=== PATIENT | female | born 1970 | race Caucasian/White ===

== ENCOUNTER 2016-10-19 23:20 | Emergency (ER) | payer MEDICARE ==
[~2016-10-19] VITALS: Ht 162.6 cm; Wt 94.3 kg
[~2016-10-19 23:20] MED LIST: ADAL40PE SQ; AMIT10TA6 PO; AMLO5TAB2 PO; ASPI-483 PO; ATOR40TA64 PO; CARV3.123 PO; CHLO25TA PO; CYCL-375 PO; FERR325C PO; GABA-338 PO; HYDR-4246 PO; ISOS30TA6 PO; LEVO100T12 PO; MECL-103 PO; METH25VI11 SQ; NITR0.4T39 SL; OMEP20CA10 PO; ONDA-55 PO; TOPI25TA64 PO
[2016-10-19 23:23] VITALS: Ht 162.6 cm; Wt 94.3 kg
--- OUTSIDE RECORDS SUMMARY | 2016-10-19 23:24 | XMS REPORT ---
Author Author GENERATED, SYSTEM Organization Unknown Address Unknown Phone Unavailable Care Team Providers Care Sliver Lap Machine Tender Name Role Phone FRIEND, LANA BLISSAE [phone] Reason For Visit Chief Complaint R83.8 Social History Functional Status Vital Signs Results Problems Encounter Diagnosis No relevant problems exist. Encounters Encounter Diagnosis No relevant problems exist. Plan of Care Procedures No relevant procedures performed. Immunizations No immunizations administered or ordered. Hospital Course Hospital Discharge Instructions Allergies, Adverse Reactions, Alerts * Latex Allergy has not been assessed. * IV Contrast Allergy has not been assessed. Medication Medication reconciliation has not been performed.
--- OUTSIDE RECORDS SUMMARY | 2016-10-19 23:24 | XMS REPORT ---
Author Author GENERATED, SYSTEM Organization Unknown Address Unknown Phone Unavailable Care Team Providers Care Acrobatic Dancer Name Role Phone FRIEND, LAINA BLISS [phone] Reason For Visit Chief Complaint MIGRAINE Social History Functional Status Vital Signs Results Chemistry from 03/12/2016 1:36 PMSODIUM 142 MMOL/L (136-145 MMOL/L) POTASSIUM 3.7 MMOL/L (3.5-5.1 MMOL/L) CHLORIDE 107 MMOL/L (98-107 MMOL/L) TCO2 25.4 MMOL/L (21.0-32.0 MMOL/L) *ANION GAP 9.6 MMOL/L (8.0-16.0 MMOL/L) BUN 9 MG/DL (7-18 MG/DL) CREATININE 0.82 MG/DL (0.55-1.02 MG/DL) *BUN/CREATININE RATIO 11.0 (9.1-17.0 ) GLUCOSE 87 MG/DL (65-99 MG/DL) *GFR EST NON AFR MICRONESIAN 87 ML/MIN *GFR EST AFR AMER >90 ML/MIN CALCIUM 8.6 MG/DL (8.5-10.1 MG/DL) BILIRUBIN TOTAL 0.40 MG/DL (0.20-1.00 MG/DL) TOTAL PROTEIN 7.0 GM/DL (6.4-8.2 GM/DL) ALBUMIN 3.6 GM/DL (3.4-5.0 GM/DL) *GLOBULIN 3.4 GM/DL (2.3-3.5 GM/DL) *A/G RATIO 1.1 MG/DL L (1.5-2.2 MG/DL) ALK PHOS 80 U/L (46-116 U/L) ALT (SGPT) 32 U/L (16-63 U/L) AST (SGOT) 20 U/L (15-37 U/L) MAGNESIUM 2.2 MG/DL (1.8-2.4 MG/DL) LIPASE 176 U/L (73-393 U/L) TROPONIN-I <0.017 NG/ML (0.000-0.056 NG/ML) Hematology from 03/12/2016 1:36 PMWBC 6.3 X10e3/UL (3.6-11.2 X10e3/UL) RBC 4.46 X10e6/UL (3.63-4.92 X10e6/UL) HEMOGLOBIN 13.4 G/DL (11.0-14.3 G/DL) HEMATOCRIT 39.6 % (31.2-41.9 %) *MCV 88.9 FL (79.0-98.0 FL) *MCH 30.0 PG (27.0-33.0 PG) *MCHC 33.8 G/DL (32.0-36.0 G/DL) *RDW 14.4 % (12.3-17.0 %) *RDWSD 45.1 (37.1-47.8 ) PLATELET 236 X10e3/UL (159-386 X10e3/UL) *MPV 7.3 FL L (7.4-10.4 FL) AUTOMATED DIFF PERFORMED SEGS 54.4 % *LYMPHOCYTES 30.3 % *MONOCYTES 9.4 % *EOSINOPHILS 5.0 % *BASOPHILS 0.9 % *ABSOLUTE NEUTROPHILS 3.40 X10e3/UL (1.80-7.80 X10e3/UL) *ABSOLUTE LYMPHOCYTES 1.90 X10e3/UL (1.00-3.00 X10e3/UL) *ABSOLUTE MONOCYTES 0.60 X10e3/UL (0.30-1.00 X10e3/UL) *ABSOLUTE EOSINOPHILS 0.30 X10e3/UL (0.00-0.50 X10e3/UL) *ABSOLUTE BASOPHILS 0.10 X10e3/UL (0.00-0.20 X10e3/UL) Urinalysis from 03/12/2016 1:00 PM* Status: Final Result URINALYSIS Specimen Number: [id number] Sample Collection Date/Time: 03/12/2016 1:00 PM Specimen Source: *URINE COLOR YELLOW (STRAW/YELL/DK YELL ) *URINE APPEARANCE CLEAR (CLEAR ) URINE PH 6.5 (5.0-8.0 ) URINE SPECIFIC GRAVITY 1.010 (<=1.005->=1.030 ) *URINE GLUCOSE NEGATIVE MG/DL (NEGATIVE MG/DL) *URINE BILIRUBIN NEGATIVE (NEGATIVE ) *URINE KETONES NEGATIVE MG/DL (NEGATIVE MG/DL) *URINE BLOOD NEGATIVE (NEGATIVE ) *URINE PROTEIN NEGATIVE MG/DL (NEGATIVE MG/DL) *URINE UROBILINOGEN 0.2 EU/DL (0.2-1.0 EU/DL) *URINE NITRITES NEGATIVE (NEGATIVE ) *URINE LEUKOCYTES SMALL A (NEGATIVE ) UR NEGATIVE (NEGATIVE ) *MICROSCOPIC EXAM PERFORMED PERFORMED *WBC URINE 5-10 /HPF A (0-5 /HPF) *SQUAMOUS EP. CELLS FEW /LPF (NEG-FEW /LPF) Microbiology from 03/12/2016 5:10 PM* CULTURE CSF (Preliminary Result) Specimen Number: [id number] Sample Collection Date/Time: 03/12/2016 5:10 PM Specimen Source: CSF (Spinal Fluid) *GRAM STAIN: Gram Stain: No organisms seen 03/12/2016 18:53 No WBC's Result reviewed by dayshift microbiologist. CULTURE CSF: No growth * *GRAM STAIN Specimen Number: [id number] Sample Collection Date/Time: 03/12/2016 5:10 PM Specimen Source: CSF (Spinal Fluid) CULTURE CSF: No growth *GRAM STAIN: Gram Stain: No organisms seen 03/12/2016 18:53 No WBC's Result reviewed by dayscoft microbiologist. Body Fluids from 03/12/2016 5:10 PM*CSF VOLUME 7.0 ML *CSF COLOR COLORLESS (COLORLESS ) *CSF APPEARANCE CLEAR (CLEAR ) *CSF TOTAL NUCLEATED CELLS 0 X10e6/L (0-5 X10e6/L) *CSF RBC 0 X10e6/L (0-1 X10e6/L) CSF GLUCOSE (LAB) 56 MG/DL (40-70 MG/DL) CSF PROTEIN 61 MG/DL H (15-45 MG/DL) *CSF COMMENT See Below DX Radiology from 03/12/2016 2:00 PMCHEST 1 VIEW History: weakness Priors: None. Findings: The heart size and pulmonary vasculature within normal limits. No consolidating infiltrates are identified. No significant pleural effusion or pneumothorax is seen. Impression: No acute abnormality. Electronically signed by: Carmen Montiel MD Dictated: 03/12/2016 14:24 CT Scan from 03/12/2016 3:15 PMCT CEREBRAL W/O CONTRAST History: headache . Onset was this morning, Patient arrives via wheelchair with reports of weakness, nausea and migraine headache. Priors: CT head dated 02/11/2016 Findings: Ventricles and Extra axial spaces: Normal in size and morphology for the patient's age. Hemorrhage: None. Cerebral parenchyma: Normal. Mass effect/midline shift: None. Brainstem/Cerebellum: Normal. Calvarium: Normal. Visualized Paranasal sinuses/Mastoids: Clear. Impression: Unremarkable CT scan of the head. Electronically signed by: Carmen Montiel MD Dictated: 03/12/2016 15:21 Problems Encounter Diagnosis No relevant problems exist. [...]
--- OUTSIDE RECORDS SUMMARY | 2016-10-19 23:24 | XMS REPORT | Continuity of Care Document ---
Author Author [facility] Organization [facility] Address Unknown Phone Unavailable Care Team Providers Care Stock Checker Name Role Phone Mike Matos Primary Care Physician [phone] Source Comments Some departments are not documenting in the electronic medical record. If you do not see the information that you expected, contact Release of Information in the Health Information Management department at [phone] for further assistance in locating additional records.[facility] Active Allergies and Adverse Reactions Allergen Noted Date Severity Reactions Comments Copaxone 01/12/2012 HIVES Latex 01/12/2012 Medium RASH And possible blisters Morphine 03/06/2012 RASH Sulfa (Sulfonamide 09/04/2012 HIVES Antibiotics) Current Medications Prescription Sig. Disp. Refills Start End Date Status Date Magnesium 500 mg Tab Take by mouth. Active vitamins, multiple tablet Take 1 Tab by mouth Active daily. vitamins, B complex Tab Take 1 Tab by mouth Active daily. baclofen (LIORESAL) 10 mg Take 20 mg by mouth at Active tablet bedtime daily. Takes 10mg (1 tablet) every morning and 20mg (2 tablets) every evening. gabapentin (NEURONTIN) Take 1,200 mg by mouth at Active 400 mg capsule bedtime daily. Takes 800mg (2 capsules) every morning and 1200mg (3 capsules) every evening ferrous sulfate 325 mg Take 1 Tab by mouth three 90 Tab 1 09/06/19 Active (65 mg iron) tablet times daily with meals. 13 NITROGLYCERIN PO Take 0.4 mg by mouth as Active Needed. methotrexate PF 25 mg/mL Inject into area(s) as Active injection directed every 7 days. promethazine (PHENERGAN) Take 1 Tab by mouth every 30 Tab 5 08/11/19 Active 25 mg tablet 6 hours as needed for 16 Nausea. prochlorperazine Insert or Apply 1 12 3 08/11/19 Active (COMPAZINE) 25 mg rectal Suppository to rectal Suppository 16 suppository area as directed every 12 hours as needed for Nausea. ondansetron (ZOFRAN ( Take 1 Tab by mouth every 20 Tab 5 08/11/19 Active HYDROCHLORIDE)) 8 mg 8 hours as needed. 16 tablet chlorproMAZINE Take 1 Tab by mouth as 30 Tab 3 10/07/19 Active (THORAZINE) 50 mg tablet Needed. 1 po at onset 16 severe migraine, may repeat in 12 hours topiramate (TOPAMAX) 25 2 tab bid 120 Tab 5 01/12/20 Active mg tablet 16 amitriptyline (ELAVIL) 10 TAKE UP TO 8 TABLETS BY 240 Tab 0 02/01/ Active mg tablet MOUTH AT BEDTIME DAILY 16 DIRECTED Active Problems Problem Noted Date Recurrent conversion disorder 09/20/2012 Tremor 09/15/2012 Spastic 09/04/2012 Fibromyalgia 04/20/2012 Arthritis 04/20/2012 Headache 03/06/2012 Overview: Followed and under investigation by Dr. Isaias Alejandra. Conversion disorder 03/06/2012 Overview: Non-organic visual field loss OU. Patient's confrontation visual rogers consistent with non-organic field loss. Funduscopic exam demonstrates no retina or optic nerve pathology. Social History Tobacco Use Types Packs/Day Years Used Date Former Smoker Cigarettes 2 3 Quit: 09/05/1991 Smokeless Tobacco: Never Used Alcohol Use Drinks/Week oz/Week Comments No 0 Standard 0.0 drinks or equivalent Last Filed Vital Signs Vital Sign Reading Time Taken Blood Pressure 124/82 08/11/2015 10:33 AM FOOD SERVICE SPECIALIST Pulse 84 08/11/2015 10:33 AM FOOD SERVICE SPECIALIST Temperature 37.2 C (98.9 F) 09/05/2012 5:06 PM CDT Respiratory Rate 20 06/21/2013 10:53 AM FOOD SERVICE SPECIALIST Height 1.626 m (5' 4") 08/11/2015 10:33 AM FOOD SERVICE SPECIALIST Weight 94.348 kg (208 lb) 08/11/2015 10:33 AM FOOD SERVICE SPECIALIST Body Mass Index 35.69 08/11/2015 10:33 AM FOOD SERVICE SPECIALIST Oxygen Saturation 98% 09/05/2012 5:06 PM CDT Plan of Care Health Maintenance Due Date Last Done Comments Physical (Comprehensive) 09/08/1978 Exam Pertussis Vaccine 09/08/1982 Tetanus Vaccine 09/08/1988 Cervical Cancer Screening 09/08/1992 Breast Cancer Screening 2011 Influenza Vaccine 02/18/2017 Results from Last 3 Months Not on file
--- OUTSIDE RECORDS SUMMARY | 2016-10-19 23:24 | XMS REPORT ---
Author Author GENERATED, SYSTEM Organization Unknown Address Unknown Phone Unavailable Care Team Providers Care Geothermal Operating Engineer Name Role Phone FRIEND, LAINA BLISS [phone] Reason For Visit Chief Complaint I25.10 Social History Functional Status Vital Signs Results [...]
--- OUTSIDE RECORDS SUMMARY | 2016-10-19 23:24 | XMS REPORT ---
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 Active 09919196 Problem Mild intermittent asthma J45.20 Active 346111482 Problem PVCs (premature ventricular contractions) I49.3 Active 20668051 Problem Fibromyalgia M79.7 Active 646148763 Problem Sleep apnea G47.30 Active 52032732 Problem Migraine with status migrainosus G43.901 Active 242597638 Problem SAUNDRA on CPAP G47.33 Active 99465311 Problem Right foot drop M21.371 Active 131997971362840 Problem CAD (coronary artery disease) I25.10 Active 09019977 Problem Migraine G43.909 Active 49982239 Problem Depression F32.9 Active 522839263 Problem Stroke I63.9 Active 572676327 Problem Neuropathy G62.9 Active 079435501 Problem GERD (gastroesophageal reflux disease) K21.9 Active 620767131 Problem High blood pressure I10 Active 07527970 Assessment Acute bronchitis J20.9 May, Active 35469066 Problem Anxiety F41.9 Active 52835177 Problem Aortic insufficiency I35.1 Active 16826227 Problem Rheumatoid arthritis M06.9 Active 34520020 Problem Irritable bowel K58.9 Active 22911077 Problem Anxiety and depression F41.9 Active 623034271 ALLERGIES Substance Reaction Event Type Date Status SULFA hives Drug Allergy May, Active Latex Gloves rash/blisters Drug Allergy May, Active Morphine Sulfate hives Drug Allergy May, Active Copaxone hives Drug Allergy May, Active SOCIAL HISTORY No smoking Hx information available PLAN OF CARE VITAL SIGNS Height 5 ft 5 in in 2016-06-16 Weight 203 lbs 2016-06-16 BMI 33.78 kg/m2 2016-06-16 Temperature 98.2 degrees Fahrenheit 2016-06-16 Heart Rate 80 /min 2016-06-16 Oximetry 96 % 2016-06-16 Blood pressure systolic 138 mm Hg 2016-06-16 Blood pressure diastolic 84 mm Hg 2016-06-16 MEDICATIONS Medication Instructions Dosage Frequency Start Date End Date Duration Status Methotrexate Sodium 25 MG/ML subcutaneous every week 0.8ml Active Humira 10 MG/0.2ML Active Levothyroxine Sodium 100 MCG Orally Once a day on an empty stomach 1 tablet 30 days Active Aspirin 81 MG Orally PM 1 tablet Active [employer]st[employer]. Devices . M21.37 as directed right ankly support Mar, 99 days Active Iron 325 (65 Fe) MG Orally twice a day 1 tablet 12h Active Biotin 1000 MCG Orally once a day in PM 1 tablet Active Isosorbide Mononitrate CR 30MG TAKE ONE TABLET BY MOUTH ONCE DAILY 30 Active Ondansetron HCl 4 MG Orally q 6 hrs prn 1 tablet Feb, 30 day( s) Active Amitriptyline HCl 10 MG Orally at bedtime up to 8 tablets 30 Active Meclizine HCl 25 MG Orally bid prn 1 tablet as needed Feb, 30 day(s) Active Folic Acid 400 MCG Orally twice a day 2 tablets 12h Active ChlorproMAZINE HCl 25 MG Orally every 12 hours PRN 1 tablet 30 days Active Gabapentin 300 MG Orally Three times a day 1 capsule 8h 30 days Active Topamax 100 MG Orally Twice a day 1 tablet 12h May, 30 day(s) Active Atorvastatin Calcium 40 MG Orally at bedtime 1 tablet Active Azithromycin 250 MG Orally Once a day 2 tablets on the first day, then 1 tablet daily for 4 days 24h May, Jun, 5 day(s) Active Omeprazole 20 MG Orally Once a day 1 capsule 24h Dec, 30 day(s ) Active Amlodipine Besylate 2 mg Orally twice a day 1 tablet 12h Jan, Active Fluoxetine HCl 20 MG Orally Once a day in the morning 1 capsule in the morning Apr, 30 day(s) Active Coreg 3.125 MG Orally twice a day 1 tablet 12h Active Nitroglycerin 0.4 MG Sublingual for chest pain. May repeat q 5 min for a totoal of 3 doses as directed Dec, 30 days Active RESULTS No Results PROCEDURES Procedure Date Ordered Related Diagnosis Body Site [facility] VISIT ESTABLISHED PATIENT Jun 16, 2016 OFFICE VISIT EST PATIENT LEVEL 4 Jun 16, 2016 IMMUNIZATIONS No Known Immunizations
--- OUTSIDE RECORDS SUMMARY | 2016-10-19 23:25 | XMS REPORT | Continuity of Care Document ---
Author Author [facility] Organization [facility] Address Unknown Phone Unavailable Care Team Providers Care Repairer Helper Name Role Phone FRIENDLAINA DO Primary Care Physician [phone] Insurance Providers Guarantor Shamir Mahoney Address [address] [place] [id number] Email [email or web address] Payer Medicare Policy Number [id number] Subscriber's Name Shamir Mahoney Relationship 18 Self Effective Date 01 Problems Active Problems Medical Problem Onset Date Status Contusion of arm, left, multiple sites Unknown Acute Crush accident Unknown Acute Past Problems Medical Problem Onset Date Atypical angina Unknown Atypical chest pain Unknown Chest pain Unknown Tachycardia Unknown Medications Current Home Medications Medication Dose Units Route Directions Days Qty Instructions Start Date Adalimumab (Humira) 40 Mg/0.8 Ml Pen.ij.kit 1 Syringe Sub-Q Every 2 Weeks 03/08/16 Amitriptyline Hcl 10 Mg Tablet 80 Mg Oral Bedtime 03/08/16 Amlodipine Besylate 5 Mg Tablet 5 Mg Oral Daily 03/08/16 Aspirin (Baby Aspirin) 81 Mg Tab.chew 81 Mg Oral Daily 01/23/09 Atorvastatin Calcium 40 Mg Tablet 40 Mg Oral Daily 03/08/16 Carvedilol 3.125 Mg Tablet 1 Tab Oral Twice Daily With Meals 30 Days 60 Tablet BEST WITH FOOD. 04/10/16 Chlorpromazine Hcl 25 Mg Tablet 50 Mg Oral Twice A Day as needed for Prn Orders 03/08/16 Cyclobenzaprine Hcl 10 Mg Tablet 10 Mg Oral Every 6 Hours as needed for Muscle Spasm 04/07/16 Ferrous Sulfate (Iron) 325 Mg Capsule.er 325 Mg Oral Twice A Day 03/08/16 Gabapentin 300 Mg Capsule 300 Mg Oral Three Times A Day 03/08/16 Hydrocodone/Acetaminophen (Thompson 5-325 Tablet) 5-325 Tablet 1 Tab Oral Every 6 Hours as needed for Pain 04/07/16 Hydrocodone/Acetaminophen (Thompson 5-325 Tablet) 5-325 Tablet 1 Tab Oral Every 8 Hours Prn as needed for Pain 3 Days [address] Kenneth Haynes Publication Distributor [facility] [address] [phone] 05/31/16 Isosorbide Mononitrate (Isosorbide Mononitrate Er) 30 Mg Tab.er.24h 1 Tab Oral Daily 30 Days 30 Tablet 04/07/16 Levothyroxine Sodium 100 Mcg Tablet 100 Mcg Oral Before Breakfast Once daily before breakfast 04/07/16 Meclizine Hcl 25 Mg Tablet 25 Mg Oral Q6h/0300,0900,1500,2100 as needed for Prn Orders 04/07/16 Methotrexate Sodium (Methotrexate) 25 Mg/1 Ml Vial 0.8 Ml Sub-Q Weekly Tuesday03/08/16 Nitroglycerin 0.4 Mg Tab.subl 0.4 Mg Sublingual Every 5 Minutes X 3 as needed for Chest Pain 03/08/16 Omeprazole 20 Mg Capsule.dr 20 Mg Oral Before Breakfast 03/08/16 Ondansetron Hcl 4 Mg Tablet 4 Mg Oral Q6h/0300,0900,1500,2100 as needed for Nausea 04/07/16 Topiramate 25 Mg Tablet 100 Mg Oral Twice A Day 03/08/16 Social History Social History Problem Response Recorded Date/Time Onset Date Status Hx Substance Use No 04/10/2016 1:27am Not Applicable Not Applicable Hx Alcohol Use No 04/10/2016 1:27am Not Applicable Not Applicable Hospital Discharge Instructions Current inpatient/outpatient. Discharge instructions are currently unavailable. Plan of Care Current inpatient/outpatient. The plan of care is currently unavailable Functional Status No functional status results. Allergies, Adverse Reactions, Alerts Allergen Type Severity Reaction Status Last Updated glatiramer acetate Allergy Mild ITCHING Active 05/31/16 Sulfa (Sulfonamide Antibiotics) Allergy Severe hives Active 05/31/16 Morphine Allergy Mild ITCHING Active 05/31/16 Latex Allergy Intermediate blisters Active 05/31/16 Immunizations Query Response on File Recorded Date/Time Hx Influenza Vaccination No 01/23/09 9:23am Hx Pneumococcal Vaccination Y IN PAST FIVE YEARS 01/23/09 9:23am Hx Influenza Vaccination No 01/23/09 9:23am Influenza Vaccine Hx MAR 2016 05/31/16 1:29pm Tetanus Diptheria Vaccine History UP TO DATE 05/31/16 1:29pm Vital Signs Acute Vital Signs Vital Response Date/Time Temperature (Fahrenheit) 97.0 deg F (96.8 - 99.1) 05/31/2016 1:32pm Temperature (Calculated Celsius) 36.27054 degrees C (36.0 - 37.3) 05/31/2016 1:32pm Pulse Rate (adult) 77 bpm (60 - 100) 05/31/2016 1:32pm Respiratory Rate 18 breaths/min (10 - 20) 05/31/2016 1:32pm O2 Sat by Pulse Oximetry 96 % (90 - 100) 05/31/2016 1:32pm Blood Pressure 116/81 mm Hg 05/31/2016 1:32pm Height (Feet) 5 feet 04/10/2016 1:23am Height (Inches) 64.00 inches 05/31/2016 1:32pm Weight (Kilograms) 92.800 kg 05/31/2016 1:32pm Body Mass Index (BMI) 35.0 05/31/2016 1:32pm Results Laboratory Results Test Name Result Units Flags Reference Collection Date/Time Result Date/ Time Comments White Blood Count 6.7 T/MM3 4.5-11.0 04/07/2016 5:59pm 04/07/2016 6: 17pm Red Blood Count 4.89 M/MM3 4.00-5.20 04/07/2016 5:59pm 04/07/2016 6: 17pm Hemoglobin 14.6 GM/DL 06-0404/07/2016 5:59pm 04/07/2016 6:17pm Hematocrit 43.9 % 36-46 04/07/2016 5:59pm 04/07/2016 6:17pm Mean Corpuscular Volume 89.8 UM3 80-100 04/07/2016 5:59pm 04/07/2016 6: 17pm Mean Corpuscular Hemoglobin 29.9 UUG 26-34 04/07/2016 5:59pm 2015 6:17pm Mean Corpuscular Hemoglobin Concent 33.3 GM/DL 31-37 04/07/2016 5:59pm 04/07/2016 6:17pm RDW Standard Deviation 42.1 FL 36.9-50.2 04/07/2016 5:59pm 04/07/2016 6 :17pm Platelet Count 279 T/MM3 130-400 04/07/2016 5:59pm 04/07/2016 6:17pm Mean Platelet Volume 10.2 UM3 9.4-12.4 04/07/2016 5:59pm 04/07/2016 6: 17pm Neutrophils (%) (Auto) 46.2 % 33-66 04/07/2016 5:59pm 04/07/2016 6: 17pm Lymphocytes (%) (Auto) 43.8 % 23-45 04/07/2016 5:59pm 04/07/2016 6: 17pm Monocytes (%) (Auto) 6.9 % 0-9.0 04/07/2016 5:59pm 04/07/2016 6:17pm Eosinophils (%) (Auto) 2.3 % 0-4 04/07/2016 5:59pm 04/07/2016 6:17pm Basophils (%) (Auto) 0.6 % 0-2 04/07/2016 5:59pm 04/07/2016 6:17pm Immature Granulocyte % (Auto) 0.2 % 0.0-0.5 04/07/2016 5:59pm 2015 6:17pm Absolute Neutrophils (auto) 3.1 T/MM3 1.8-7.7 04/07/2016 5:59pm 2015 6:17pm Absolute Lymphocytes (auto) 2.9 T/MM3 1-4.8 04/07/2016 5:59pm 2015 6:17pm Absolute Monocytes (auto) 0.5 T/MM3 0-0.8 04/07/2016 5:59pm 04/07/2016 6:17pm Absolute Eosinophils (auto) 0.2 T/MM3 0-0.5 04/07/2016 5:59pm 2015 6:17pm Absolute Basophils (auto) 0.0 T/MM3 0-0.2 04/07/2016 5:59pm 04/07/2016 6:17pm Absolute Immature Granulocyte (auto 0.01 T/MM3 0.00-0.03 04/07/2016 5: 59pm 04/07/2016 6:17pm D-Dimer 222 NG/ML 0-230 04/07/2016 5:59pm 04/07/2016 6:32pm <230 NG/ ML D-DU=PRESUMPTIVE NEGATIVE FOR PE OR DVT >230 NG/ML D-DU=ADDITIONAL EVAL FOR PE OR DVT RECOMMENDED Icterus Index < 2 0-7 04/07/2016 5:59pm 04/07/2016 6:35pm Turbidity < 20 0-20 04/07/2016 5:59pm 04/07/2016 6:35pm Sodium Level 147 MEQ/L H 134-144 04/07/2016 5:59pm 04/07/2016 6:22pm Potassium Level 3.9 MEQ/L 3.6-5 04/07/2016 5:59pm 04/07/2016 6:22pm Chloride Level 112 MEQ/L H 98-107 04/07/2016 5:59pm 04/07/2016 6:22pm Carbon Dioxide Level 24 MEQ/L 22-30 04/07/2016 5:59pm 04/07/2016 6: 22pm Anion Gap 11 MEQ/L 5-15 04/07/2016 5:59pm 04/07/2016 6:22pm Blood Urea Nitrogen 12.0 MG/DL 7-17 04/07/2016 5:59pm 04/07/2016 6: 22pm Creatinine 0.8 MG/DL 0.7-1.2 04/07/2016 5:59pm 04/07/2016 6:22pm BUN/Creatinine Ratio 15 RATIO 6-26 04/07/2016 5:59pm 04/07/2016 6:22pm Glomerular Filtration Rate Calc 78 04/07/2016 5:59pm 04/07/2016 6: 22pm Glucose Level 123 MG/DL H 65-110 04/07/2016 5:59pm 04/07/2016 6:22pm Calculated Osmolality 283 MOSM/KG H 261-280 04/07/2016 5:59pm 2015 6:22pm Calcium Level 9.5 MG/DL 8.4-10.2 04/07/2016 5:59pm 04/07/2016 6:22pm AP-Sgm-S-Type Natriuretic Peptide 129 PG/ML 0-175 04/07/2016 5:59pm 6:35pm Rule in cut points: <50 years old=450; 50-75 years old=900; >75 years old=1800; When utilizing ProBNP rule-in cut points, adjustment for impaired renal function is typically not required. Urine Collection Type VOIDED-NOT CC-MIDSTR 04/07/2016 6:53pm 2015 6:58pm Urine Color YELLOW YELLOW 04/07/2016 6:53pm 04/07/2016 6:58pm Urine Turbidity SL CLOUDY CLEAR 04/07/2016 6:53pm 04/07/2016 6:58pm Urine Specific [place] 1.020 1.015-1.025 04/07/2016 6:53pm 2015 6:58pm Urine pH 6.5 5.0-8.0 04/07/2016 6:53pm 04/07/2016 6:58pm Urine Leukocyte Esterase NEGATIVE NEGATIVE 04/07/2016 6:53pm 2015 6:58pm Urine Nitrite NEGATIVE NEGATIVE 04/07/2016 6:53pm 04/07/2016 6:58pm Urine Protein NEGATIVE NEGATIVE 04/07/2016 6:53pm 04/07/2016 6:58pm Urine Glucose (UA) NEGATIVE NEGATIVE 04/07/2016 6:53pm 04/07/2016 6: 58pm Urine Ketones NEGATIVE NEGATIVE 04/07/2016 6:53pm 04/07/2016 6:58pm Urine Urobilinogen 0.2 EU/DL NORMAL 04/07/2016 6:53pm 04/07/2016 6: 58pm Urine Bilirubin NEGATIVE NEGATIVE 04/07/2016 6:53pm 04/07/2016 6: 58pm Urine Blood NEGATIVE NEGATIVE 04/07/2016 6:53pm 04/07/2016 6:58pm Urinalysis Comment MICROSCOPIC NOT IND. 04/07/2016 6:53pm 2015 6:58pm Chemistry Specimen Hemolysis < 15 0-25 04/10/2016 2:02am 04/10/2016 2 :29am 0-25: Specimen Exhibited No Hemolysis. Troponin I < 0.012 ng/ml 0-0.12 04/10/2016 2:02am 04/10/2016 2:29am Troponin values with a difference of 55% increase from orginal troponin value represent a true biological DELTA value. (%increase Calc=Orginal Troponin value, divided by subsequent Troponin value, multiplied by 100) Procedures Procedure Status Date Provider(s) CHEST X-RAY 1 VIEW FRONTAL Completed 03/08/16 METABOLIC PANEL TOTAL CA Completed 03/08/16 ASSAY OF NATRIURETIC PEPTIDE Completed 03/08/16 ASSAY OF TROPONIN QUANT Completed 03/08/16 COMPLETE CBC W/AUTO DIFF WBC Completed 03/08/16 ELECTROCARDIOGRAM TRACING Completed 03/08/16 THER/PROPH/DIAG INJ IV PUSH Completed 03/08/16 TX/PRO/DX INJ NEW DRUG ADDON Completed 03/08/16 EMERGENCY DEPT VISIT Completed 03/08/16 [id number] ITEM OR SERVICE Completed 03/08/16 [id number] ITEM OR SERVICE Completed 03/08/16 [id number] ITEM OR SERVICE Completed 03/08/16 027724"INJECTION, HYDROMORPHONE, UP TO 4 MG" Completed 03/08/16 945215"INJECTION, KETOROLAC TROMETHAMINE, PER 15 MG" Completed 03/08/16 CHEST X-RAY 1 VIEW FRONTAL Completed 04/07/16 METABOLIC PANEL TOTAL CA Completed 04/07/16 URINALYSIS AUTO W/O SCOPE Completed 04/07/16 ASSAY OF NATRIURETIC PEPTIDE Completed 04/07/16 ASSAY OF TROPONIN QUANT Completed 04/07/16 COMPLETE CBC W/AUTO DIFF WBC Completed 04/07/16 FIBRIN DEGRADATION QUANT Completed 04/07/16 ELECTROCARDIOGRAM TRACING Completed 04/07/16 EMERGENCY DEPT VISIT Completed 04/07/16 [id number] ITEM OR SERVICE Completed 04/07/16 [id number] ITEM OR SERVICE Completed 04/07/16 [id number] ITEM OR SERVICE Completed 04/07/16 [id number] ITEM OR SERVICE Completed 04/07/16 ROUTINE VENIPUNCTURE Completed 04/10/16 ASSAY OF TROPONIN QUANT Completed 04/10/16 ELECTROCARDIOGRAM TRACING Completed 04/10/16 EMERGENCY DEPT VISIT Completed 04/10/16 [id number] ITEM OR SERVICE Completed 04/10/16 Encounters Encounter Location Arrival/Admit Date Discharge/Depart Date Attending Provider Registered [facility] 05/31/16 2:07pm LEANDER CHAN APRN Departed Emergency Room [facility] 05/31/16 1:23pm 05/31/16 1: 52pm LEANDER CHAN APRN Departed Emergency Room [facility] 04/10/16 1:11am 04/10/16 3: 25am OCTOBERJOSHUA DO Departed Emergency Room [facility] 04/07/16 5:16pm 04/07/16 7: 50pm KENNETH HAYNES MD Departed Emergency Room [facility] 03/08/16 5:41pm 03/08/16 7: 20pm KENNETH HAYNES MD
--- OUTSIDE RECORDS SUMMARY | 2016-10-19 23:25 | XMS REPORT ---
Author Author Friend, Sulma Kwok [employer] Address Unknown Phone Unavailable Care Team Providers Care Overhead Distribution Engineer Name Role Phone Friend, Sulma CHENEY Unavailable Allergies, Adverse Reactions, Alerts Substance Reaction Event Type SULFA hives Drug Allergy Latex Gloves rash/blisters Drug Allergy Morphine Sulfate hives Drug Allergy Copaxone hives Drug Allergy Problems Problem Type Condition Code Onset Dates Condition Status Assessment SAUNDRA on CPAP G47.33 Active Problem High blood pressure I10 Active Assessment Migraine with status migrainosus G43.901 Active Problem Aortic insufficiency I35.1 Active Assessment 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 Active Problem Anxiety and depression F41.9 Active Problem Hypothyroid E03.9 Active Problem HLD (hyperlipidemia) E78.5 Active Problem PVCs (premature ventricular contractions) I49.3 Active Problem Right foot drop M21.371 Active Problem Fibromyalgia M79.7 Active Problem Sleep apnea G47.30 Active Problem 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 Active Problem Rheumatoid arthritis M06.9 Active Problem SAUNDRA on CPAP G47.33 Active Problem 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 Active Problem CAD (coronary artery disease) I25.10 Active Problem Migraine with status migrainosus G43.901 Active Problem Neuropathy G62.9 Active Problem Migraine G43.909 Active Problem Mild intermittent asthma J45.20 Active Problem Stroke I63.9 Active Problem Irritable bowel K58.9 Active Problem GERD (gastroesophageal reflux disease) K21.9 Active Problem Depression F32.9 Active Problem Anxiety F41.9 Active Medications Medication Code System Code Instructions Start Date End Date Status Dosage Folic Acid [facility] [address]-11 400 MCG Orally twice a day 2 tablets Levothyroxine Sodium [facility] [address]-98 100 MCG Orally Once a day on an empty stomach 1 tablet Atorvastatin Calcium [facility] [address]-00 40 MG Orally at bedtime 1 tablet Nitroglycerin ND 0 0.4 MG Sublingual for chest pain. May repeat q 5 min for a totoal of 3 doses December 26, 2015 as directed Amitriptyline HCl [facility] [address]-69 10 MG Orally at bedtime up to 8 tablets Fluoxetine HCl [facility] [address]-27 20 MG Orally Once a day in the morning Apr 21, 2016 1 capsule in the morning Biotin [facility] [address] 1000 MCG Orally once a day in PM 1 tablet Amlodipine Besylate [facility] [address]-10 5 MG Orally Once a day Feb 09, 2016 1 tablet Methotrexate Sodium [facility] [address]-33 25 MG/ML subcutaneous every week 0.8ml Misc. Devices [facility] 0 . M21.37 as directed Apr 06, 2016 right ankly support Omeprazole [facility] [address]-82 20 MG Orally Once a day December 26, 2015 1 capsule Iron [facility] 23690-29741 325 (65 Fe) MG Orally twice a day 1 tablet Topamax [facility] [address]-16 100 MG Orally Twice a day May 28, 2016 1 tablet Humira [facility] [address]-03 10 MG/0.2ML Subcutaneous not defined Gabapentin [facility] [address]-49 300 MG Orally Three times a day 1 capsule ChlorproMAZINE HCl [facility] [address]-36 25 MG Orally every 12 hours PRN 1 tablet Isosorbide Mononitrate CR [facility] [address]-39 30 MG Orally Once a day 1 tablet Aspirin [facility] [address]-94 81 MG Orally PM 1 tablet Meclizine HCl [facility] [address]-12 25 MG Orally bid prn Mar 11, 2016 1 tablet as needed Ondansetron HCl [facility] [address]-18 4 MG Orally q 6 hrs prn Mar 11, 2016 1 tablet Coreg [facility] [address]-24 3.125 MG Orally twice a day 1 tablet Procedures Procedure Coding System Code Date OFFICE VISIT EST PATIENT LEVEL 3 CPT-4 12319 May 28, 2016 METHYLPREDNISOLONE 80 MG INJ CPT-4 J1040 May 28, 2016 [facility] VISIT ESTABLISHED PATIENT CPT-4 G0467 May 28, 2016 THERPROPHDIAG INJ, SCIM CPT-4 45913 May 28, 2016 Vital Signs Date/Time: May 28, 2016 BMI 33.94 Index Weight 204 lbs Height 5 ft 5 in in Blood Pressure Diastolic 88 mm Hg Blood Pressure Systolic 132 mm Hg Cardiac Monitoring Heart Rate 80 /min Temperature 97.7 F Oximetry 97 % Respiratory Rate 20 /min Results No Known Results Summary Purpose [employer] Submission
--- OUTSIDE RECORDS SUMMARY | 2016-10-19 23:26 | XMS REPORT ---
Author Author DAVID CABRERA [facility] [place] Address Unknown Phone Unavailable Care Team Providers Care News Producer Name Role Phone Dr. PAUL SOLIZ Primary Care Physician Unavailable Allergies Allergy Description Allergy Type SULFA (sulfonamide) Drug allergy (disorder) MORPHINE Drug allergy (disorder) LATEX Environmental allergy (disorder) COPAXONE Drug allergy (disorder) Procedures Procedure Type Procedure Description Date Physicians No codified procedures found for this patient. Results COMP METABOLIC Observation Test Name Observation Test Result Observation Test Units Observation Test Date Observation Test Time GLUCOSE 94 mg/dL 04/03 17:28 BUN 13 mg/dL 2012 17:28 CREATININE 0.90 mg/dL 04/03/2013 17:28 AGE 42 YEARS 2012 17:28 GFR 73.3 04/03/2013 17:28 SODIUM 140 mmol/L 17:28 POTASSIUM 3.9 mmol/L 04/03/2013 17:28 CHLORIDE 103 mmol/L 17:28 CO2 27 mmol/L 2012 17:28 CALCIUM 8.9 mg/dL 17:28 AST 25 U/L 04/03/2013 17:28 ALT 42 U/L 04/03/2013 17:28 ALKALINE PHOS 77 U/L 04/03/2013 17:28 TOTAL PROTEIN 7.3 g/dL 04/03/2013 17:28 ALBUMIN 3.6 g/dL 04/03 17:28 TOTAL BILI 0.20 mg/dL 04/03/2013 17:28 C-REACTIVE PROTEIN Observation Test Name Observation Test Result Observation Test Units Observation Test Date Observation Test Time CRP 9 mg/L 04/03/2013 17:28 CBC W/ DIFF Observation Test Name Observation Test Result Observation Test Units Observation Test Date Observation Test Time WBC 9.1 x10^3 2012 16:11 RBC 4.72 x10^6 2012 16:11 HEMOGLOBIN 13.9 g/dL 04/03/2013 16:11 HEMATOCRIT 41.6 % 16:11 MCV 88 fL 04/03/2013 16:11 MCH 29.5 pg 2012 16:11 MCHC 33.5 g/dL 2012 16:11 RDW 12.6 % 04/03/2013 16:11 PLATELETS 347 x10^3 16:11 MPV 7.7 fL 04/03/2013 16:11 NEUTROPHILS 69.8 % 16:11 LYMPHOCYTES 21.4 % 16:11 MONOCYTES 5.1 % 2012 16:11 EOSINOPHILS 1.9 % 16:11 BASOPHILS 1.8 % 2012 16:11 REFLEX MAN DIFF NO 16:11 SED RATE AUTO Observation Test Name Observation Test Result Observation Test Units Observation Test Date Observation Test Time SED RATE 18 mm/HR 16:51 History of Immunizations Immunization Date influenza, unspecified formulation 03/20/2012 pneumococcal, unspecified formulation 11/18/2009 Plan of Care Item Text No plan of care items. Procedure Date/Time/Initials Critical? Status No plan of care procedures. Medication List Medication Dose Units Frequency Start Date/Time Status Omeprazole 20MG Oral Capsule, Delayed Release 20 MILLIGRAMS NEEDED 12/10/11 Inactive Ropinirole Hydrochloride 1MG Oral Tablet 2 MILLIGRAMS AT BEDTIME 12/10/11 Inactive Aspirin Adult Low Strength 81MG Oral Tablet, Enteric Coated 81 MILLIGRAMS DAILY 10/06 Active Savella 50MG Oral Tablet 50 MILLIGRAM TWICE A DAY 12/10/11 Inactive Omeprazole 20MG Oral Capsule, Delayed Release 20 MILLIGRAMS DAILY 12/10/11 Inactive Multi Vitamins Oral Tablet 1 EACH DAILY 12/10/11 Active APAP/Hydrocodone Bitartrate 325MG-7.5MG Oral Tablet 0 MILLIGRAM Q 6-8 HRS PRN 10/06 Active Lasix 20MG Oral Tablet 20 MILLIGRAMS DAILY 12/10/11 Inactive Gabapentin 400MG Oral Capsule 400 MILLIGRAMS 12/10/11 Inactive Baclofen 10MG Oral Tablet 10 MILLIGRAMS 12/10/11 Inactive Levothyroxine 0.05MG Oral Tablet 0.05 MILLIGRAMS 12/10/11 Active Savella 50MG Oral Tablet 50 MG BID 12/10/11 Active Atrovent HFA 0.017MG/Actuation Inhalation Solution 1 EACH NEEDED 09/04/12 Active Nexium 20MG Oral Capsule, Delayed Release 20 MILLIGRAMS DAILY 09/04/12 Active Neurontin 400MG Oral Capsule 1200 MILLIGRAMS AT BEDTIME 09/04/12 Active Neurontin 400MG Oral Capsule 800 MILLIGRAMS DAILY 09/04/12 Active Baclofen 10MG Oral Tablet 20 MILLIGRAMS TWICE A DAY 09/04/12 Active Zofran 4MG Oral Tablet 4 MILLIGRAMS NEEDED 09/04/12 Active Phenergan 25MG Oral Tablet 25 MILLIGRAMS NEEDED 09/04/12 Active Amitriptyline 10MG Oral Tablet 50 MILLIGRAMS AT BEDTIME 09/04/12 Active Omeprazole 20MG Oral Capsule, Delayed Release 20 MILLIGRAMS TWICE A DAY 09/04/12 Active Verapamil HCl 120MG Oral Tablet 120 MILLIGRAMS DAILY 09/04/12 Active Vitamin B-100 Natural 0.1MG-100MG-0.1MG-0. Oral Tablet 2 EACH DAILY 09/04/12 Active Magnesium 250MG Oral Tablet 500 MILLIGRAMS TWICE A DAY 09/04/12 Active Benadryl Allergy 25MG Oral Tablet 25 MILLIGRAMS TWICE A DAY 09/04/12 Active Lorazepam 0.5MG Oral Tablet 0.5 MILLIGRAMS NEEDED 09/04/12 Active [place] 325MG-10MG Oral Tablet 1 EACH NEEDED 09/04/12 Active Problem List Problem Entered Date Resolved Date DIABETES MELLITUS 12/14/2011
--- OUTSIDE RECORDS SUMMARY | 2016-10-19 23:26 | XMS REPORT ---
Author Author DAVID CABRERA [facility] Address Unknown Phone Unavailable Care Team Providers Care Admitted Attorneys Name Role Phone Dr. JONATHAN VALENZUELA Primary Care Physician Unavailable Allergies Allergy Description Allergy Type SULFA (sulfonamide) Drug allergy (disorder) MORPHINE Drug allergy (disorder) LATEX Environmental allergy (disorder) COPAXONE Drug allergy (disorder) Procedures Procedure Type Procedure Description Date Physicians No codified procedures found for this patient. Results No Procedures Performed Observation Test Name Observation Test Result Observation Test Units Observation Test Date Observation Test Time No result observations. History of Immunizations Immunization Date influenza, unspecified [...] Oral Tablet 0.5 MILLIGRAMS NEEDED 09/04/12 Active [place] 325MG-10MG Oral Tablet 1 EACH NEEDED 09/04/12 Active Problem List Problem Entered Date Resolved Date DIABETES MELLITUS 12/14/2011
--- OUTSIDE RECORDS SUMMARY | 2016-10-19 23:26 | XMS REPORT ---
Author Author GENERATED, SYSTEM Organization Unknown Address Unknown Phone Unavailable Care Team Providers Care Cold Work Operator Name Role Phone FRIENDDO DESIRAE [phone] Reason For Visit Chief Complaint CT HEAD WITH OUT CONTRAST Social History Functional Status Vital Signs Results [...]
--- OUTSIDE RECORDS SUMMARY | 2016-10-19 23:27 | XMS REPORT ---
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 Active 02706524 Problem Mild intermittent asthma J45.20 Active 974384729 Problem PVCs (premature ventricular contractions) I49.3 Active 08543464 Problem Fibromyalgia M79.7 Active 634384706 Problem Sleep apnea G47.30 Active 46338098 Problem Migraine with status migrainosus G43.901 Active 736092707 Problem SAUNDRA on CPAP G47.33 Active 79453163 Problem Right foot drop M21.371 Active 857396166595556 Problem CAD (coronary artery disease) I25.10 Active 25129441 Problem Migraine G43.909 Active 91526353 Problem Depression F32.9 Active 800952312 Problem Stroke I63.9 Active 570231713 Problem Neuropathy G62.9 Active 623383799 Problem GERD (gastroesophageal reflux disease) K21.9 Active 301180817 Problem High blood pressure I10 Active 00990988 Problem Anxiety F41.9 Active 62614105 Problem Aortic insufficiency I35.1 Active 80807521 Problem Rheumatoid arthritis M06.9 Active 55502844 Problem Irritable bowel K58.9 Active 60615679 Problem Anxiety and depression F41.9 Active 173042031 ALLERGIES Unknown Allergies SOCIAL HISTORY No smoking Hx information available PLAN OF CARE VITAL SIGNS MEDICATIONS Unknown Medications RESULTS No Results PROCEDURES No Known procedures IMMUNIZATIONS No Known Immunizations
--- OUTSIDE RECORDS SUMMARY | 2016-10-19 23:27 | XMS REPORT | Continuity of Care Document ---
Demographics Preferred Language Unknown Marital Status Unknown Religion Affiliation Unknown Race Unknown Ethnic Group Unknown Author Author [facility] Organization [facility] Address Unknown Phone Unavailable Allergies Active Description Code Type Severity Reaction Onset Reported/Identified Relationship to Patient Clinical Status Yes adhesive adhesive Drug Allergy Moderate BLISTERS 05/09/2014 Yes glatiramer glatiramer Drug Allergy Moderate HIVES AND WELTS 05/09/2014 Yes latex latex Drug Allergy Moderate BLISTERS 05/09/2014 Yes morphine morphine Drug Allergy Unknown HIVES 05/09/2014 Yes Sulfa (Sulfonamide Antibiotics) Sulfa (Sulfonamide Antibiotics) Drug Allergy Unknown HIVES Yes morphine [id number] Drug Allergy Unknown N/A 02/15/2016 Yes Sulfa (Sulfonamide Antibiotics) [id number] Drug Allergy Unknown N/A 02/15/2016 Medications Problems Date Dx Coded Attending Type Code Diagnosis Diagnosed By 02/13/2015 PAUL SOLIZ MD A Ot 714.0 02/27/2015 PAUL SOLIZ MD A Ot 714.0 07/01/2015 PAUL SOLIZ MD A Ot 714.0 07/01/2015 RIKKI DENTON Ot R51 07/01/2015 RIKKI DENTON Ot R51 08/12/2015 Ot R51 09/29/2015 PAUL SOLIZ MD A Ot 714.0 09/29/2015 RIKKI DENTON Ot R51 09/29/2015 Ot R51 10/01/2015 NAMRATA ROSSI MD Ot G43.909 MIGRAINE, UNSP, NOT INTRACTABLE, WITHOUT 10/01/2015 NAMRATA ROSSI MD Ot R51 HEADACHE 10/08/2015 CISCO LUNA APRN Ot G43.809 OTHER MIGRAINE, NOT INTRACTABLE, WITHOUT 10/27/2015 PAUL SOLIZ MD A Ot M06.9 RHEUMATOID ARTHRITIS, UNSPECIFIED 10/27/2015 PAUL SOLIZ MD Ot M15.0 PRIMARY GENERALIZED (OSTEO)ARTHRITIS 10/27/2015 PAUL SOLIZ MD Ot M06.9 RHEUMATOID ARTHRITIS, UNSPECIFIED 10/30/2015 HEYDI MD, PAUL A Ot M06.9 RHEUMATOID ARTHRITIS, UNSPECIFIED 10/30/2015 HEYDI BROUSSARD, PAUL A Ot M15.0 PRIMARY GENERALIZED (OSTEO)ARTHRITIS 11/06/2015 HEYDI BROUSSARD, PAUL A Ot M06.9 RHEUMATOID ARTHRITIS, UNSPECIFIED 11/06/2015 HEYDI BROUSSARD, PAUL A Ot M15.0 PRIMARY GENERALIZED (OSTEO)ARTHRITIS 11/21/2015 HEYDI BROUSSARD, PAUL A Ot M06.9 RHEUMATOID ARTHRITIS, UNSPECIFIED 11/21/2015 HEYDI BROUSSARD, PAUL A Ot M15.0 PRIMARY GENERALIZED (OSTEO)ARTHRITIS 12/16/2015 Ot R51 HEADACHE 12/19/2015 WILGERSCISCO L RESPIRATORY COORDINATOR Ot G43.809 OTHER MIGRAINE, NOT INTRACTABLE, WITHOUT 01/10/2016 RIKKI DENTON Ot R51 HEADACHE 01/27/2016 WILGERS, CISCO L RESPIRATORY COORDINATOR Ot G43.809 OTHER MIGRAINE, NOT INTRACTABLE, WITHOUT 02/06/2016 NAMRATA ROSSI MD R Ot F17.210 NICOTINE DEPENDENCE, CIGARETTES, UNCOMPL 02/06/2016 NAMRATA ROSSI MD R Ot I38 ENDOCARDITIS, VALVE UNSPECIFIED 02/06/2016 NAMRATA ROSSI MD R Ot R07.2 PRECORDIAL PAIN 02/06/2016 NAMRATA ROSSI MD R Ot R07.9 CHEST PAIN, UNSPECIFIED 02/10/2016 NAMRATA ROSSI MD R Ot R07.89 OTHER CHEST PAIN 02/10/2016 NAMRATA ROSSI MD R Ot Z86.79 PERSONAL HISTORY OF OTHER DISEASES OF TH 02/10/2016 NAMRATA ROSSI MD R Ot R07.89 OTHER CHEST PAIN 02/10/2016 NAMRATA ROSSI MD R Ot Z86.79 PERSONAL HISTORY OF OTHER DISEASES OF TH 02/12/2016 NAMRATA ROSSI MD R Ot F17.210 NICOTINE DEPENDENCE, CIGARETTES, UNCOMPL 02/12/2016 NAMRATA ROSSI MD R Ot I38 ENDOCARDITIS, VALVE UNSPECIFIED 02/12/2016 NAMRATA ROSSI MD R Ot R07.2 PRECORDIAL PAIN 02/12/2016 NAMRATA ROSSI MD R Ot R07.9 CHEST PAIN, UNSPECIFIED 02/15/2016 NAMRATA ROSSI MD R Ot I11.9 HYPERTENSIVE HEART DISEASE WITHOUT HEART 02/15/2016 NAMRATA ROSSI MD R Ot R07.2 PRECORDIAL PAIN 02/15/2016 NAMRATA ROSSI MD R Ot R07.89 OTHER CHEST PAIN 02/15/2016 BERNARDO BENNETT MD Ot F17.210 NICOTINE DEPENDENCE, CIGARETTES, UNCOMPL 02/15/2016 BERNARDO BENNETT MD Ot R06.00 DYSPNEA, UNSPECIFIED 02/15/2016 BERNARDO BENNETT MD Ot R07.89 OTHER CHEST PAIN 02/16/2016 ELVIE PA, RIKKI D Ot R51 HEADACHE 02/20/2016 NAMRATA ROSSI MD R Ot I11.9 HYPERTENSIVE HEART DISEASE WITHOUT HEART 02/20/2016 FLAKO ROSSI MDPH R Ot R07.2 PRECORDIAL PAIN 02/20/2016 NAMRATA ROSSI MD R Ot R07.89 OTHER CHEST PAIN 02/20/2016 NAMRATA ROSSI MD R Ot I11.9 HYPERTENSIVE HEART DISEASE WITHOUT HEART 02/20/2016 NAMRATA ROSSI MD R Ot R07.2 PRECORDIAL PAIN 02/20/2016 NAMRATA ROSSI MD R Ot R07.89 OTHER CHEST PAIN 03/01/2016 NAMRATA ROSSI MD R Ot R07.89 OTHER CHEST PAIN 03/01/2016 ENID BROUSSARD, OTT R Ot Z86.79 PERSONAL HISTORY OF OTHER DISEASES OF TH 04/09/2016 BERNARDO BENNETT MD Ot F17.210 NICOTINE DEPENDENCE, CIGARETTES, UNCOMPL 04/09/2016 BERNARDO BENNETT MD Ot R06.00 DYSPNEA, UNSPECIFIED 04/09/2016 BERNARDO BENNETT MD Ot R07.89 OTHER CHEST PAIN 04/11/2016 BERNARDO BENNETT MD Ot F17.210 NICOTINE DEPENDENCE, CIGARETTES, UNCOMPL 04/11/2016 BERNARDO BENNETT MD Ot R06.00 DYSPNEA, UNSPECIFIED 04/11/2016 BERNARDO BENNETT MD Ot R07.89 OTHER CHEST PAIN Procedures Code Description Performed By Performed On 65.63 LAPAROSCOP REMOVE OVARIES/TUBES Anthony Cowart MD 05/21/2014 Results Test Result Range CBC - 05/09/14 11:45 MEAN CELL HGB 29.4 pg 27.0-33.0 MEAN CELL HGB CONCENTRATION 33.8 g/dL 32.0-37.0 MEAN CELL VOLUME 86.9 fl 80.0-100.0 RED BLOOD CELL 4.49 m/cumm 4.00-6.00 RED CELL DISTRIBUTION WIDTH 13.0 % 11.0- 15.6 WHITE BLOOD CELL 7.4 k/cumm 5.0-10.0 HEMOGLOBIN 13.2 gm/dL 12.0-16.0 HEMATOCRIT 39.0 % 37.0-47.0 PLATELET COUNT 260 k/cumm 150-400 METABOLIC PANEL, BASIC - 05/09/14 11:45 POTASSIUM 3.8 mmol/L 3.5-5.3 EST GFR (MDRD) > 60 mL/min > 59 ANION GAP 7 mmol/L 5-15 GLUCOSE 109 mg/dL 70-99 CALCIUM 9.0 mg/dL 8.5-10.1 BLOOD UREA NITROGEN 9 mg/dL 7-20 CREATININE 0.7 mg/dL 0.6-1.0 SODIUM 139 mmol/L 135-148 CHLORIDE 106 mmol/L 98-110 CARBON DIOXIDE 26 mmol/L 21-32 TEST, SERUM - 05/21/14 05:18 TEST, SERUM NEGATIVE NEGATIVE MRSA SURVEILLANCE SCREEN - 05/21/14 07:45 Microbiology FLUID CYTOLOGY - 05/21/14 08:02 FLUID CYTOLOGY SPECIMEN RECEIVED Complete blood count (CBC) with automated white blood cell (WBC) differential - 02/06/16 21:30 Blood automated leukocyte count 6.85 4.0 -11.0 Erythrocytes 4.65 4.00-5.00 12.0-16.0;g/dL 14.0 12.0-15.5 Hematocrit 41.10 35.00-45.00 Automated erythrocyte mean corpuscular volume 88 80-100 Mean corpuscular hemoglobin (MCH) determination 30.1 26.0-34.0 Automated erythrocyte mean corpuscular hemoglobin concentration measurement ( mass/volume) 34.1 31.0-37.0 Erythrocyte distribution width 13.9 11.8 -15.6 Automated blood platelet count 277 150- 450 Automated blood platelet mean volume measurement 10.3 6.0-9.5 Prothrombin time (PT) with international normalized ratio (INR) - 02/06/16 21: 30 Prothrombin time (PT) in platelet poor plasma by coagulation assay 13.2 11.6-14.2 INR in platelet poor plasma by coagulation assay 1.0 0.8-1.4 Activated partial thromboplastin time (aPTT) in platelet poor plasma bycoagulation assay - 02/06/16 21:30 Activated partial thromboplastin time (aPTT) in platelet poor plasma bycoagulation assay 33.5 24.9-35.9 Comprehensive metabolic panel - 02/06/16 21:30 Sodium measurement 97 70-110 Carbon dioxide measurement 26 22-29 Serum or plasma anion gap 18.8 3-15 BLOOD UREA NITROGEN 12 7-18 CREATININE SERUM 0.86 0.6-1.2 Brucella species antibody panel (IgG, IgM) 14 10-20 Estimated glomerular filtration rate (GFR) 86.7 Estimated glomerular filtration rate (GFR) non- 71.7 OSMOLALITY,CALCULATED 284 280-300 CALCIUM 9.2 8.8-10.8 Calculated ionized calcium measurement 3.8 3.8-4.6 BILIRUBIN,TOTAL 0.6 0.1-1.0 Serum or plasma alkaline phosphatase measurement 78 38-126 ASPARTATE AMINO TRANSFERASE 39 15-37 ALANINE AMINOTRANSFERASE 41 30-65 Serum or plasma total protein measurement 7.8 6.4-8.5 Serum or plasma albumin measurement 4.6 3.4-5.0 Serum or plasma albumin/globulin mass ratio 1.437 1.1-1.8 Serum or plasma creatine kinase measurement - 02/06/16 21:30 Serum or plasma creatine kinase measurement 347 30-135 Serum or plasma creatine kinase MB measurement - 02/06/16 21:30 Serum or plasma creatine kinase MB measurement 2.8 0.0-6.0 TROPONIN I* - 02/06/16 21:30 TROPONIN I < 0.012 0.010-0.080 Complete blood count, platelets with manual differential - 02/06/16 21:30 Total cell count 100 Blood segmented neutrophils percentage 35 51-67 Blood band neutrophil count as percentage of total leukocytes 0 0-6 LYMPHOCYTES % 62 20-46 Automated monocyte percentage 2 3-11 Eosinophil count auto 1 0-4 Basophils 0 0-2 NEUTROPHILS(SEG) 2.4 NEUTROPHILS # BANDS 0.0 Blood lymphocytes manual count (number/volume) 4.2 Automated blood monocyte count 0.1 Blood absolute eosinophil count 0.1 Basophils 0.0 Erythrocyte morphology assessment NORMAL NORMAL Complete blood count (CBC) with automated white blood cell (WBC) differential - 02/14/16 20:59 Blood automated leukocyte count 6.49 4.0 -11.0 Erythrocytes 4.40 4.00-5.00 12.0-16.0;g/dL 13.2 12.0-15.5 Hematocrit 38.50 35.00-45.00 Automated erythrocyte mean corpuscular volume 88 80-100 Mean corpuscular hemoglobin (MCH) determination 30.0 26.0-34.0 Automated erythrocyte mean corpuscular hemoglobin concentration measurement ( mass/volume) 34.3 31.0-37.0 Erythrocyte distribution width 13.7 11.8 -15.6 Automated blood platelet count 301 150- 450 Automated blood platelet mean volume measurement 9.7 6.0-9.5 Automated neutrophil percentage 47 51- 67 Lymphocytes/100 leukocytes 41 20-46 Automated monocyte percentage 9 3-11 Eosinophil count auto 3 0-4 Automated basophil percentage 1 0-2 Automated blood neutrophil count 3.0 Blood lymphocytes count (number/volume) 2.7 Automated blood monocyte count 0.6 Blood absolute eosinophil count 0.2 Basophils 0.0 Comprehensive metabolic panel - 02/14/16 20:59 Sodium measurement 99 70-110 Carbon dioxide measurement 23 22-29 Serum or plasma anion gap 18.9 3-15 BLOOD UREA NITROGEN 11 7-18 CREATININE SERUM 0.94 0.6-1.2 Brucella species antibody panel (IgG, IgM) 12 10-20 Estimated glomerular filtration rate (GFR) 78.3 Estimated glomerular filtration rate (GFR) non- 64.7 OSMOLALITY,CALCULATED 281 280-300 CALCIUM 9.3 8.8-10.8 Calculated ionized calcium measurement 3.9 3.8-4.6 BILIRUBIN,TOTAL 0.5 0.1-1.0 Serum or plasma alkaline phosphatase measurement 73 38-126 ASPARTATE AMINO TRANSFERASE 27 15-37 ALANINE AMINOTRANSFERASE 47 30-65 Serum or plasma total protein measurement 7.6 6.4-8.5 Serum or plasma albumin measurement 4.5 3.4-5.0 Serum or plasma albumin/globulin mass ratio 1.451 1.1-1.8 Serum or plasma creatine kinase measurement - 02/14/16 20:59 Serum or plasma creatine kinase measurement 236 30-135 Serum or plasma creatine kinase MB measurement - 02/14/16 20:59 Serum or plasma creatine kinase MB measurement 1.4 0.0-6.0 TROPONIN I* - 02/14/16 20:59 TROPONIN I < 0.012 0.010-0.080 Prothrombin time (PT) with international normalized ratio (INR) - 02/14/16 20: 59 Prothrombin time (PT) in platelet poor plasma by coagulation assay 14.0 11.6-14.2 INR in platelet poor plasma by coagulation assay 1.1 0.8-1.4 Activated partial thromboplastin time (aPTT) in platelet poor plasma bycoagulation assay - 02/14/16 20:59 Activated partial thromboplastin time (aPTT) in platelet poor plasma bycoagulation assay 35.0 24.9-35.9 TROPONIN I* - 02/14/16 22:55 TROPONIN I < 0.012 0.010-0.080 Complete blood count (CBC) with automated white blood cell (WBC) differential - 02/15/16 15:45 Blood automated leukocyte count 6.20 4.0 -11.0 Erythrocytes 4.34 4.00-5.00 12.0-16.0;g/dL 13.1 12.0-15.5 Hematocrit 38.00 35.00-45.00 Automated erythrocyte mean corpuscular volume 88 80-100 Mean corpuscular hemoglobin (MCH) determination 30.2 26.0-34.0 Automated erythrocyte mean corpuscular hemoglobin concentration measurement ( mass/volume) 34.5 31.0-37.0 Erythrocyte distribution width 13.7 11.8 -15.6 Automated blood platelet count 296 150- 450 Automated blood platelet mean volume measurement 9.7 6.0-9.5 Automated neutrophil percentage 47 51- 67 Lymphocytes/100 leukocytes 41 20-46 Automated monocyte percentage 9 3-11 Eosinophil count auto 3 0-4 Automated basophil percentage 1 0-2 Automated blood neutrophil count 2.9 Blood lymphocytes count (number/volume) 2.5 Automated blood monocyte count 0.6 Blood absolute eosinophil count 0.2 Basophils 0.0 Comprehensive metabolic panel - 02/15/16 15:45 Sodium measurement 99 70-110 Carbon dioxide measurement 26 22-29 Serum or plasma anion gap 17.2 3-15 BLOOD UREA NITROGEN 12 7-18 CREATININE SERUM 1.05 0.6-1.2 Brucella species antibody panel (IgG, IgM) 11 10-20 Estimated glomerular filtration rate (GFR) 68.9 Estimated glomerular filtration rate (GFR) non- 56.9 OSMOLALITY,CALCULATED 280 280-300 CALCIUM 9.3 8.8-10.8 Calculated ionized calcium measurement 3.9 3.8-4.6 BILIRUBIN,TOTAL 0.6 0.1-1.0 Serum or plasma alkaline phosphatase measurement 75 38-126 ASPARTATE AMINO TRANSFERASE 32 15-37 ALANINE AMINOTRANSFERASE 51 30-65 Serum or plasma total protein measurement 7.7 6.4-8.5 Serum or plasma albumin measurement 4.5 3.4-5.0 Serum or plasma albumin/globulin mass ratio 1.406 1.1-1.8 TROPONIN I* - 02/15/16 15:45 TROPONIN I < 0.012 0.010-0.080 NT-Pro BNP - 02/15/16 15:45 NT-Pro BNP 136 0-125 THYROID STIMULATING HORMONE* - 02/15/16 15:45 THYROID STIMULATING HORMONE 3.99 0.46- 4.68 C REACTIVE PROTEIN* - 02/15/16 15:45 C REACTIVE PROTEIN* < 0.50 0.0-0.9 FREE T4 - 02/15/16 15:45 FREE T4 0.86 0.78-2.19 Encounters ACCT No. Visit Date/Time Discharge Status Pt. Type Provider Facility Loc./Unit Complaint [id number] 01/25/2014 10:47:00 ACT Unknown [id number] 01/23/2014 13:15:00 ACT Unknown [id number] 11/16/2013 08:16:00 ACT Unknown [id number] 10/11/2013 13:30:00 ACT Unknown [id number] 10/11/2013 13:30:00 ACT Unknown [id number] 09/25/2013 10:54:00 ACT Unknown [id number] 08/28/2013 11:52:00 ACT Unknown [id number] 08/21/2013 11:13:00 ACT Unknown [id number] 08/20/2013 09:01:00 ACT Unknown [id number] 08/15/2013 08:30:00 ACT Unknown [id number] 08/07/2013 11:48:00 ACT Unknown [id number] 08/07/2013 10:15:00 ACT Unknown [id number] 07/30/2013 11:48:00 ACT Unknown [id number] 07/23/2013 13:08:00 ACT Unknown [id number] 07/18/2013 13:27:00 ACT Unknown [id number] 07/18/2013 08:07:00 ACT Unknown [id number] 07/16/2013 11:27:00 ACT Unknown [id number] 06/25/2013 09:44:00 ACT Unknown [id number] 04/27/2013 09:45:00 ACT Unknown [id number] 04/26/2013 09:15:00 ACT Unknown [id number] 04/04/2013 09:02:00 ACT Unknown [id number] 04/02/2013 10:03:00 ACT Unknown
--- OUTSIDE RECORDS SUMMARY | 2016-10-19 23:27 | XMS REPORT ---
Author Author [facility], SYSTEM Organization Unknown Address Unknown Phone Unavailable Care Team Providers Care Credit Union Examiner Name Role Phone FRIEND, LAINA BLISS [phone] Reason For Visit Chief Complaint I35.1 Social History Functional Status Vital Signs Results [...]
--- OUTSIDE RECORDS SUMMARY | 2016-10-19 23:27 | XMS REPORT ---
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
[2016-10-19] MEDS ORDERED: CLINDAMYCIN 300 MG CAPSULE PO ONE (23:45)
[2016-10-19] MEDS ORDERED: HYDROCODONE/APAP 5 mg/325 mg TABLET PO ONE (23:45)
[2016-10-19] MEDS ORDERED: HYDR-4246 PO (23:47)
[2016-10-19] MEDS ORDERED: CLIN-89 PO (23:47)
--- NOTE | 2016-10-19 23:47 | ERPDOC ---
Departure Disposition Decision Date: October 19, 2016 Disposition Decision Time: 23:44 Disposition: 01 DISCHARGED HOME, SELF-CARE Impression Impression Impression: Primary Impression: Abscess Severity: Mild Condition: Improved Seen By: Physician only Referrals: FRIENDLAINA DO (Family) 1 Day Patient Instructions: Abscess (ED) Problems/Meds/Labs Reviewed?: Yes Medications reviewed and manag: Yes Follow up care ordered?: Yes Mental Status: Alert, Oriented Scripts Hydrocodone/Acetaminophen (Ayr 5-325 Tablet) 5-325 Tablet 1 TAB PO Q4HR Y for PAIN for 3 Days, #18 TAB 0 Refills Prov: SYD MOYER DO 10/19/16 Clindamycin HCl (Clindamycin HCl) 150 Mg Capsule 2 CAP PO Q6HR for 10 Days, #80 CAP 0 Refills TAKE WITH A FULL GLASS OF WATER TO AVOID ESOPHAGEAL IRRITATION. Prov: SYD MOYER DO 10/19/16 HPI - Skin General General Chief Complaint: Skin Rash/Abscess Stated Complaint: BUG BITE Time Seen by Provider: 23:30 Source: patient Exam Limitations: no limitations HPI - Skin General Initial Comments 46-year-old female presents to the emergency department with a chief complaint of a potential bug bite to her pelvic region. Patient noted a red area to her mons region earlier today. Patient notes a mild dull aching discomfort locally at the site of lesion. No radiation. She did not see any sort of insect bite her. Patient was at home when the symptoms began. Symptoms have been persistent in nature since onset. Patient denies any other complaints or associated symptoms. She does not note any exacerbating or remitting factors. Occurred At: home Onset: Gradual Allergies: Coded Allergies: Sulfa (Sulfonamide Antibiotics) (Verified Allergy, Severe, hives, 10/19/16) latex (Verified Allergy, Intermediate, blisters, 10/19/16) glatiramer acetate (Verified Allergy, Mild, ITCHING , 10/19/16) morphine (Verified Allergy, Mild, ITCHING, 10/19/16) Past History Past Medical History Metabolic: cancer, hypothyroidism Cardiac: angina Neurological: CVA, TIA, multiple sclerosis, seizures Musculoskeletal: rheumatoid arthritis Hematologic: DVT Psychological: depression, other Surgical History Reproductive/: , hysterectomy, tubal ligation Joint: carpal tunnel, shoulder Family History Family History: Negative Family PMH: FOUND: other Vaccines Hx Influenza Vaccination: No Hx Pneumococcal Vaccination: Yes (IN PAST FIVE YEARS ) Social History Smoking Status: Never smoker Substance Use Type: does not use Alcohol Intake: occasionally Review of Systems Constitutional Constitutional: DENIES: chills, fever Eyes General: DENIES: erythema, exudate Lids/Accessories: DENIES: erythema, swelling Vision: DENIES: acuity, blurring ENMT Ears: DENIES: drainage, erythema Hearing: DENIES: hearing loss Balance: DENIES: ataxia, falling to one side Sinuses: DENIES: congestion, pain Nose: DENIES: nosebleeds, pain Mouth/Throat: DENIES: painful swallowing, sore throat Teeth: DENIES: pain Jaw: DENIES: pain Cardiovascular Cardiac: DENIES: chest pain, dyspnea on exertion Rhythm/Rate: DENIES: irregular beat, palpitations Vascular: DENIES: pedal edema, unilateral swelling Pulmonary Respiratory: DENIES: cough, dyspnea, pleuritic chest pain, sputum GI Upper Abdomen: DENIES: nausea, pain, vomiting Lower Abdomen: DENIES: diarrhea, pain General: DENIES: dysuria, frequency Musculoskeletal General: DENIES: joint pain, tenderness Integumentary Skin: DENIES: itching, rash Neurological General: DENIES: headache, numbness, weakness Psychiatric Psychiatric: DENIES: emotional instability, suicidal ideation/attempt Endocrine Endocrine: DENIES: polydipsia, polyphagia Hematologic/Lymphatic Hematologic/Lymphatic: DENIES: frequent nosebleeds, lymphadenopathy Allergic/Immunological Allergic/Immunoligical: DENIES: allergic reactions, hives Physical Exam General General Nourishment: well nourished, well developed, appears stated age, no acute distress, adult General Body Habitus: well groomed Vitals and Pain First Documented Vital Signs Date Time Temp Pulse Resp B/P Pulse Ox O2 Delivery O2 Flow Rate FiO2 10/19/16 23:23 97.9 78 18 164/75 99 Room Air Weight: Kilograms: Height (feet): 5 Height (inches): 64.00 Triage Pain Scale: RN VS reviewed by Provider: Yes Normal Exams: Head: Normocephalic w/o trauma Eyes: Pupils are PERRLA w/ EOMI, No scleral icterus, irritation, or foreign bodies noted ENMT: No facial trauma, nasal exudates, pharyngeal erythema, or exudates are noted Dental: No fractured, loose, or missing teeth noted Neck: Full range of motion, without adenopathy, JVD, bruits or thyromegaly Chest/Resp: Clear all rogers, with good airflow, and symmetry bilaterally CV: Regular rate and rhythm, without murmur or gallop, Pulses 2+ all extremities, capillary refill, <2 seconds all ext., no pedal edema noted Abdomen: Bowel sounds positive, soft, non-tender, non-distended, no hepatosplenomegaly, masses or bruits noted Lymphatic: No lymphadenopathy, or lymphedema noted Musculoskeletal: No tenderness, or deformity noted, good range of motion, all extremities Integumentary: No rashes, hives, or bruising noted, hair and nails, without abnormality Neurologic: Patient is alert, and oriented, cranial nerves, motor/sensory/ cerebellar, exams w/o gross deficits, to observation Psychiatric: Patient exhibits, appropriate attention, emotion and affect Integumentary (brief) Comments 2 cm area of erythema without fluctuance or pointing in the R side of the mons. No lymphangitis. Findings are consistent with early abscess. No local lymphadenopathy. No vesicular lesions are noted. Differential Diagnoses Considering: Abrasion, Abscess, Carbuncle, Cellulitis, Folliculitis, Furuncle Progress Results/Orders Orders Procedure Category Date Status Time Clindamycin (Cleocin) PHA 10/19/16 Complete 23:45 Hydrocodone/Acetaminophen PHA 10/19/16 Complete (Ayr 5/325) 23:45 Medications Current ED Medications Clindamycin HCl (Cleocin) 300 mg O ONCE PO Last administered on 10/19/16 23:56 ; Start 10/19/16 at 23:45; Stop 10/19/16 at 23:46; Status DC Acetaminophen/ Hydrocodone Bitart (Ayr 5/325) 1 tab O ONCE PO Last administered on 10/19/16t 23:56; Start 10/19/16 at 23:45; Stop 10/19/16 at 23:46; Status DC Progress Progress Without fluctuance there is no current indication for incision and drainage of area. Patient is started on clindamycin 300 mg by mouth every 6 hours 10 days. She is given analgesic pain medication with improvement of symptoms. Patient is provided with prescription for clindamycin and Ayr. She is discharged home in improved condition. She is to follow up as instructed. Patient is to return to the emergency Department if her condition worsens or changes in any manner. Patient is advised to have a wound check in the next 24- 48 hours. Strict return precautions are provided and the patient verbalizes agreement and understanding. Patient states that she is no longer taking her prior immunomodulating prescriptions. Patient is in agreement with the current plan of management. She is to follow up as instructed. SYD MOYER DO October 19, 2016 23:47
[2016-10-20 00:02] VITALS: BP 145/72; PULSE 79; RESP 18; TEMP 97.9; O2SAT 95
--- NOTE | 2016-10-20 00:02 | NUR ---
DEPART PT GIVEN DI FOR ABSCESS, CLINDAMYCIN, NORCO, F/U. RX PROVIDED FOR CLINDAMYCIN AND NORCO. PT VERBALIZES UNDERSTANDING OF DI. QUESTIONS ASKED/ANSWERED - DENIES FURTHER QUESTIONS/NEEDS AT THIS TIME. PERSONAL BELONGINGS GATHERED. PT AMBULATED/ESCORTED TO ED EXIT.
--- OUTSIDE RECORDS SUMMARY | 2016-10-20 00:09 | XMS REPORT | Continuity of Care Document ---
Author Author [facility] Organization [facility] Address Unknown Phone Unavailable Care Team Providers Care Cleaning Maid Name Role Phone Mike Matos Primary Care Physician [phone] Source Comments Some departments are not documenting in the electronic medical record. If you do not see the information that you expected, contact Release of Information in the Health Information Management department at [phone] for further assistance in locating additional records.[facility] Active Allergies and Adverse Reactions Allergen [...] Taken Blood Pressure 124/82 08/11/2015 10:33 AM PROCESS IMPROVEMENT MANAGER Pulse 84 08/11/2015 10:33 AM PROCESS IMPROVEMENT MANAGER Temperature 37.2 C (98.9 F) 09/05/2012 5:06 PM CDT Respiratory Rate 20 06/21/2013 10:53 AM PROCESS IMPROVEMENT MANAGER Height 1.626 m (5' 4") 08/11/2015 10:33 AM PROCESS IMPROVEMENT MANAGER Weight 94.348 kg (208 lb) 08/11/2015 10:33 AM PROCESS IMPROVEMENT MANAGER Body Mass Index 35.69 08/11/2015 10:33 AM PROCESS IMPROVEMENT MANAGER Oxygen Saturation 98% 09/05/2012 5:06 PM CDT Plan of Care Health Maintenance Due Date Last Done Comments Physical (Comprehensive) 09/08/1978 Exam Pertussis Vaccine 09/08/1982 Tetanus Vaccine 09/08/1988 Cervical Cancer Screening 09/08/1992 Breast Cancer Screening 2011 Influenza Vaccine 02/18/2017 Results from Last 3 Months Not on file
--- OUTSIDE RECORDS SUMMARY | 2016-10-20 00:10 | XMS REPORT ---
Author Author [facility] Organization Unknown Address Unknown Phone Unavailable Care Team Providers Care Sales Vice President Name Role Phone FRIEND, LAINA BLISS [phone] Reason For Visit Chief Complaint I25.10 Social [...]
--- OUTSIDE RECORDS SUMMARY | 2016-10-20 00:10 | XMS REPORT ---
Author Author [facility] Organization Unknown Address Unknown Phone Unavailable Care Team Providers Care Coat Agent Name Role Phone FRIEND, LANA BLISSAE [phone] Reason For Visit Chief Complaint R83.8 Social [...]
--- OUTSIDE RECORDS SUMMARY | 2016-10-20 00:10 | XMS REPORT ---
Author Author [facility] Organization Unknown Address Unknown Phone Unavailable Care Team Providers Care Helper Driver Name Role Phone FRIEND, LAINA BLISS [phone] Reason For Visit Chief Complaint MIGRAINE Social [...] MG/DL (65-99 MG/DL) *GFR EST NON AFR KAZAKH 87 ML/MIN *GFR EST AFR AMER >90 [...] PM* Status: Final Result URINALYSIS Specimen Number: [id number] Sample Collection Date/Time: 03/12/2016 1:00 PM Specimen [...] PM* CULTURE CSF (Preliminary Result) Specimen Number: [id number] Sample Collection Date/Time: 03/12/2016 5:10 PM Specimen Source: CSF (Spinal Fluid) *GRAM STAIN: Gram Stain: No organisms seen 03/12/2016 18:53 No WBC's Result reviewed by dayshift microbiologist. CULTURE CSF: No growth * *GRAM STAIN Specimen Number: [id number] Sample Collection Date/Time: 03/12/2016 5:10 PM Specimen Source: CSF (Spinal Fluid) CULTURE CSF: No growth *GRAM STAIN: Gram Stain: No organisms seen 03/12/2016 18:53 No WBC's Result reviewed by dayswift microbiologist. Body Fluids from 03/12/2016 5:10 PM*CSF [...]
--- OUTSIDE RECORDS SUMMARY | 2016-10-20 00:12 | XMS REPORT | Continuity of Care Document ---
Demographics Preferred Language Unknown Marital Status Unknown Worship Affiliation Unknown Race Unknown Ethnic Group Unknown Author Author [facility] Organization [facility] Address Unknown Phone Unavailable Allergies Active [...] Antibiotics) Drug Allergy Unknown HIVES Yes morphine [id number] Drug Allergy Unknown N/A 02/15/2016 Yes Sulfa (Sulfonamide Antibiotics) [id number] Drug Allergy Unknown N/A 02/15/2016 Medications Problems [...] 12/16/2015 Ot R51 HEADACHE 12/19/2015 WILGERSCISCO L [employer]PORATE LICENSED BROKER Ot G43.809 OTHER MIGRAINE, NOT INTRACTABLE, WITHOUT 01/10/2016 RIKKI DENTON Ot R51 HEADACHE 01/27/2016 WILGERS, CISCO L CORPORATE LICENSED BROKER Ot G43.809 OTHER MIGRAINE, NOT INTRACTABLE, WITHOUT [...] Status Pt. Type Provider Facility Loc./Unit Complaint [id number] 01/25/2014 10:47:00 [facility] Unknown [id number] 01/23/2014 13:15:00 [facility] Unknown [id number] 11/16/2013 08:16:00 ACT Unknown [id number] 10/11/2013 13:30:00 ACT Unknown [id number] 10/11/2013 13:30:00 ACT Unknown [id number] 09/25/2013 10:54:00 ACT Unknown [id number] 08/28/2013 11:52:00 ACT Unknown [id number] 08/21/2013 11:13:00 ACT Unknown [id number] 08/20/2013 09:01:00 ACT Unknown [id number] 08/15/2013 08:30:00 ACT Unknown [id number] 08/07/2013 11:48:00 ACT Unknown [id number] 08/07/2013 10:15:00 ACT Unknown [id number] 07/30/2013 11:48:00 ACT Unknown [id number] 07/23/2013 13:08:00 ACT Unknown [id number] 07/18/2013 13:27:00 ACT Unknown [id number] 07/18/2013 08:07:00 ACT Unknown [id number] 07/16/2013 11:27:00 ACT Unknown [id number] 06/25/2013 09:44:00 ACT Unknown [id number] 04/27/2013 09:45:00 ACT Unknown [id number] 04/26/2013 09:15:00 ACT Unknown [id number] 04/04/2013 09:02:00 ACT Unknown [id number] 04/02/2013 10:03:00 ACT Unknown
--- OUTSIDE RECORDS SUMMARY | 2016-10-20 00:12 | XMS REPORT ---
Author Author [employer] Organization Unknown Address Unknown Phone Unavailable Care Team Providers Care Window Systems Administrator Name Role Phone FRIENDDO DESIRAE [phone] Reason For Visit Chief Complaint CT HEAD [...]
--- OUTSIDE RECORDS SUMMARY | 2016-10-20 00:12 | XMS REPORT ---
Author Author DAVID CABRERA [facility] Address Unknown Phone Unavailable Care Team Providers Care Freight Elevator Erector Name Role Phone Dr. PAUL SOLIZ Primary [...] Oral Tablet 0.5 MILLIGRAMS NEEDED 09/04/12 Active [place] 325MG-10MG Oral Tablet 1 EACH NEEDED 09/04/12 Active Problem List Problem Entered Date Resolved Date DIABETES MELLITUS 12/14/2011
--- OUTSIDE RECORDS SUMMARY | 2016-10-20 00:12 | XMS REPORT ---
Author Author DAVID CABRERA [facility] Address Unknown Phone Unavailable Care Team Providers Care Geological Scout Name Role Phone Dr. JONATHAN VALENZUELA Primary [...] Oral Tablet 0.5 MILLIGRAMS NEEDED 09/04/12 Active [place] 325MG-10MG Oral Tablet 1 EACH NEEDED 09/04/12 Active Problem List Problem Entered Date Resolved Date DIABETES MELLITUS 12/14/2011
--- OUTSIDE RECORDS SUMMARY | 2016-10-20 00:13 | XMS REPORT ---
Author Author [employer], SYSTEM Organization Unknown Address Unknown Phone Unavailable Care Team Providers Care Tire Repair Mechanic Name Role Phone FRIEND, LAINA BLISS [phone] Reason For Visit Chief Complaint I35.1 Social [...]
== END 2016-10-20 00:02 | disposition home or self-care (01) ==
LOC: ED 23:20
DX: L02.215 Cutaneous abscess of perineum (principal)
CPT/HCPCS: 99283; A9270